=== PATIENT | female | born 1950 | race African-American/Black ===

== ENCOUNTER 2017-04-19 16:24 | Emergency (ER) | payer OTHER ==
[~2017-04-19] VITALS: Ht 160 cm; Wt 66.0 kg
[2017-04-19 16:25] VITALS: BP 157/79; PULSE 118; RESP 14; TEMP 98.3; O2SAT 98
[2017-04-19] MEDS ORDERED: LOSA25TA PO (16:27)
[2017-04-19] MEDS ORDERED: SODIUM CHLOR 0.9% 1000 ML INJ 1,000 ML IV ONE (16:45)
--- NOTE | 2017-04-19 16:52 | PD ---
HPI Chief Complaint: Allergic/Adverse Reaction Time Seen by Provider: 16:31 Travel History International Travel<30 days: No Contact w/Intl Traveler<30days: No Traveled to known affect area: No History of Present Illness HPI The patient is a 67-year-old female who presents to the emergency department from the oncology office after an adverse reaction to chemotherapy. The patient has a history of colon cancer who underwent partial colectomy by the colorectal surgeon, Dr. Alonzo, with primary anastomosis. The patient was receiving her first chemotherapy today, oxaliplatin, when she had an adverse reaction which included blurry vision, thickening of the tongue, tightening of the throat, paresthesias to the left hand and legs, and bilateral leg weakness. The patient did receive Decadron prior to infusion of the chemotherapy agent and afterwards received calcium gluconate and Compazine. The patient was referred to the emergency department for further monitoring and evaluation. The patient states her symptoms have significantly improved, she denies any current headache, chest pain, shortness breath, nausea, vomiting, or abdominal pain. The patient states the paresthesias in the weakness of the extremities has significantly improved. PFSH Past Medical History Hypertension: Yes Tetanus Vaccination: > 5 Years Influenza Vaccination: Yes ?: Not Menopausal: Yes Past Surgical History Abdominal Surgery: Yes (Colon) Section: Yes Social History Alcohol Use: No Tobacco Use: No Substance Use: No Allergies-Medications (Allergen,Severity, Reaction): Coded Allergies: No Known Allergies (Unverified , 04/19/17) Reported Meds & Prescriptions Reported Meds & Active Scripts Active Reported Losartan (Losartan Potassium) 25 Mg Tab 25 Mg PO DAILY Review of Systems Except as stated in HPI: all other systems reviewed are Neg HENT: Positive: Lightheadedness, Other (throat tightening as noted in the history of present illness) Cardiovascular: No: Chest Pain or Discomfort Respiratory: Positive: Shortness of Breath (currently resolved) Gastrointestinal: Positive: Nausea (currently resolved), No: Abdominal Pain Musculoskeletal: Positive: Weakness Neurologic: Positive: Paresthesia, Sensory Disturbance Physical Exam Narrative GENERAL: Awake, alert, nontoxic-appearing 67-year-old female who appears her stated age and is in no acute respiratory distress. SKIN: Focused skin assessment warm/dry. HEAD: Atraumatic. Normocephalic. EYES: Pupils equal and round. No scleral icterus. No injection or drainage. ENT: No nasal bleeding or discharge. Mucous membranes pink and moist. No obvious thickening of the tongue. No angioedema or edema of the lips noted. NECK: Trachea midline. No JVD. CARDIOVASCULAR: Regular, tachycardic with a heart rate of 110. RESPIRATORY: No accessory muscle use. Clear to auscultation. Breath sounds equal bilaterally. GASTROINTESTINAL: Abdomen soft, non-tender, nondistended. No rebound tenderness. MUSCULOSKELETAL: No obvious deformities. No clubbing. No cyanosis. No edema. Strength with flexion of the hips and extension of the knees is 5 out of 5. Plantar flexion and dorsiflexion are 5 out of 5. Positive left radial pulse. No obvious edema of the left forearm or left hand. NEUROLOGICAL: Awake and alert. No obvious cranial nerve deficits. Motor grossly within normal limits. Normal speech. Nonfocal. Oriented 4. Sensation is intact to the hands and lower extremity is bilaterally. PSYCHIATRIC: Appropriate mood and affect; insight and judgment normal. Data Data Last Documented VS Vital Signs Date Time Temp Pulse Resp B/P (MAP) Pulse Ox O2 Delivery O2 Flow Rate FiO2 04/19/17 16:25 98.3 118 14 157/79 (105) 98 Orders Orders Sodium Chlor 0.9% 1000 Ml Inj (Ns 1000 M (04/19/17 16:45) Comprehensive Metabolic Panel (04/19/17 16:42) Potassium Chloride (Kcl) (04/19/17 17:30) Labs Laboratory Tests Test 04/19/17 16:55 Blood Urea Nitrogen 11 MG/DL Creatinine 1.00 MG/DL Random Glucose 168 MG/DL Total Protein 7.7 GM/DL Albumin 4.0 GM/DL Calcium Level 9.9 MG/DL Alkaline Phosphatase 92 U/L Aspartate Amino Transf (AST/SGOT) 14 U/L Alanine Aminotransferase (ALT/SGPT) 30 U/L Total Bilirubin 0.4 MG/DL Sodium Level 137 MEQ/L Potassium Level 2.9 MEQ/L Chloride Level 99 MEQ/L Carbon Dioxide Level 28.4 MEQ/L Anion Gap 10 MEQ/L Estimat Glomerular Filtration Rate 67 ML/MIN [facility] Medical Decision Making Medical Screen Exam Complete: Yes Emergency Medical Condition: Yes Medical Record Reviewed: Yes Interpretation(s) EKG reveals sinus tachycardia with a heart rate of 112. Incomplete right bundle branch block with RSR prime in V1 with QRS of 97 ms. Nonspecific T wave changes. Laboratory Tests Test 04/19/17 16:55 Blood Urea Nitrogen 11 MG/DL Creatinine 1.00 MG/DL Random Glucose 168 MG/DL Total Protein 7.7 GM/DL Albumin 4.0 GM/DL Calcium Level 9.9 MG/DL Alkaline Phosphatase 92 U/L Aspartate Amino Transf (AST/SGOT) 14 U/L Alanine Aminotransferase (ALT/SGPT) 30 U/L Total Bilirubin 0.4 MG/DL Sodium Level 137 MEQ/L Potassium Level 2.9 MEQ/L Chloride Level 99 MEQ/L Carbon Dioxide Level 28.4 MEQ/L Anion Gap 10 MEQ/L Estimat Glomerular Filtration Rate 67 ML/MIN Differential Diagnosis Differential diagnosis includes chemotherapy adverse reaction, angioedema, anaphylaxis, allergic reaction, panic attack, anxiety. Narrative Course Labs are drawn and sent. The patient was administered 1 L of IV fluids. I spoke with the patient's oncologist, Dr. Hernández, who thinks the patient may have had a panic attack with the adverse reaction. The patient's symptoms are improving, and after discussion with oncology, as agreed if the patient's symptoms improved she can be discharged home. The patient was then monitored in the emergency department. The patient's potassium is low at 2.9, therefore, was replaced orally. The patient be discharged home with potassium supplementation for 2 days, is advised to follow-up with her oncologist. Return if symptoms worsen or progress. Diagnosis Primary Impression: Chemotherapy adverse reaction Qualified Codes: T45.1X5A - Adverse effect of antineoplastic and immunosuppressive drugs, initial encounter Additional Impression: Hypokalemia Patient Instructions: General Instructions Additional Instructions: Please provide a patient a copy of her labs at discharge. Potassium supplementation as directed. Follow-up with your oncologist. Return if symptoms worsen or progress. Med/Other Pt SpecificInfo: Prescription(s) given Scripts Potassium Chloride ER (K-Tab) 20 Meq Tab 20 MEQ PO BID for Electrolyte Replacement for 2 Days, #4 TAB 0 Refills Prov: Faisal Xiao MD 04/19/17 Disposition: 01 DISCHARGE HOME Condition: Stable Faisal Xiao MD Apr 19, 2017 16:52
[2017-04-19 17:17] LABS: ALKALINE PHOSPHATASE 92 U/L (45-117); ALT (GPT) 30 U/L (10-53); ANION GAP 10 MEQ/L (5-15); AST (GOT) 14 U/L (15-37); BICARBONATE 28.4 MEQ/L (21.0-32.0); BLOOD UREA NITROGEN 11 MG/DL (7-18); CHLORIDE 99 MEQ/L (98-107); GLOMERULAR FILTRATION RATE 67 ML/MIN (>89); SODIUM (NA) 137 MEQ/L (136-145); TOTAL BILIRUBIN ADULT 0.4 MG/DL (0.2-1.0)
[2017-04-19 17:18] LABS: POTASSIUM 2.9 MEQ/L (3.5-5.1)
[2017-04-19] MEDS ORDERED: POTA1TAB4 PO (17:27)
[2017-04-19] MEDS ORDERED: POTASSIUM CHLORIDE 20 MEQ CONTROLLED RELEASE TAB PO ONE (17:30)
[2017-04-19 17:40] VITALS: BP 152/76; PULSE 105; RESP 16; O2SAT 100
--- NOTE | 2017-04-20 10:28 | EKG ---
Date Performed: 04/19/2017 Time Performed: 16:27:10 PTAGE: 67 years EKG: SINUS TACHYCARDIA NORMAL RHYTHM ECG NO PREVIOUS TRACING DOCTOR: Jignesh Mcdonnell Interpretating Date/Time 04/20/2017 10:27:18
== END 2017-04-19 18:09 | disposition home or self-care (01) ==
LOC: PHED 16:24
DX: T45.1X5A Adverse effect of antineoplastic and immunosuppressive drugs, initial encounter (principal); E87.6 Hypokalemia; I10 Essential (primary) hypertension; Z85.038 Personal history of other malignant neoplasm of large intestine
CPT/HCPCS: 80053; 93005; 96360; 99284; J7030

== ENCOUNTER 2017-05-06 07:01 | Day surgery (SDC) | payer OTHER ==
[~2017-05-06] VITALS: Ht 162.6 cm; Wt 65.9 kg
[~2017-05-06 07:01] MED LIST: LOSA25TA PO
[2017-05-06 07:13] VITALS: BP 174/93; PULSE 98; RESP 20; TEMP 98.6; O2SAT 100
[2017-05-06] MEDS ORDERED: CHLORHEXIDINE GLUCONATE 2 % 1 PACK (2 CLOTHS) TOPICAL SCH (07:45)
[2017-05-06] MEDS ORDERED: VANCOMYCIN 1000 MG/NS 250 ML - implanted port/tunneled catheter IV SCH ×2 (07:45)
[2017-05-06] MEDS ORDERED: POVIDONE IODINE 5% (ANTISEPSIS KIT) 4 APPLICATIONS EACH NARE SCH (07:45)
[2017-05-06] MEDS ORDERED: ceFAZolin 2 GM PREMIX 50 ML - implanted port/tunneled catheter insertion IV SCH (07:45)
[2017-05-06] MEDS ORDERED: SODIUM CHLORIDE 0.9% 1000 ML IV SCH (07:45)
[2017-05-06 08:05] LABS: AUTOMATED NEUTROPHIL # 4.3 TH/MM3 (1.8-7.7); BASOPHIL # 0.1 TH/MM3 (0-0.2); BASOPHIL % 1.1 % (0.0-2.0); EOSINOPHIL # 0.2 TH/MM3 (0-0.4); EOSINOPHIL % 3.2 % (0.0-4.0); HEMATOCRIT 39.4 % (35.0-46.0); HEMO FLAGS DIFF FINAL; LYMPH % 29.9 % (9.0-44.0); LYMPHOCYTE # 2.2 TH/MM3 (1.0-4.8); MEAN CELL VOLUME 88.1 FL (80.0-100.0); MEAN CORPUSCULAR HEMOGLOBIN 30.4 PG (27.0-34.0); MEAN CORPUSCULAR HGB CONC 34.6 % (32.0-36.0); NEUT % 58.8 % (16.0-70.0); PLATELET COUNT 334 TH/MM3 (150-450); RED BLOOD COUNT 4.48 MIL/MM3 (4.00-5.30); RED CELL DISTRIBUTION WIDTH 13.5 % (11.6-17.2); WHITE BLOOD COUNT 7.4 TH/MM3 (4.0-11.0)
[2017-05-06 08:12] LABS: PROTHROMBIN TIME - PATIENT 10.5 SEC (9.8-11.6)
[2017-05-06] MEDS ORDERED: MIDAZOLAM HCL 2 MG/2 ML VIAL ONE (09:19)
[2017-05-06 10:28] VITALS: BP 128/52; PULSE 88; RESP 18; TEMP 97.6; O2SAT 100
[2017-05-06] MEDS ORDERED: SODIUM CHLORIDE 0.9% FLUSH 10 ML FLUSH IVF PRN (10:30)
--- NOTE | 2017-05-06 10:30 | PD.RAD ---
Post Procedure Progress Note Pre Procedure Diagnosis: (1) Colon cancer Post Procedure Diagnosis: (1) Colon cancer Procedure Date: May 06, 2017 Supervising Radiologist: Gilbert Sandoval JR Proceduralist/Assist: Ileana Rivers RT(R), Janel Leal RT(R) Anesthesia: Conscious Sedation Plan of Activity Patient to Unit: ROPU Patient Condition: Good See PACS Report for procedural detail/treatment Central Venous Access Device Procedure 1 Right Internal Jugular Infusaport Placement single lumen Romansh: 8 Findings: Port in good position and functions well. OK to use. Plan F/U with IR in 10-14 days for a site check Jr. Jaime,Gilbert Pro MD May 06, 2017 10:30
[2017-05-06 10:43] VITALS: BP 125/50; PULSE 80; RESP 17; O2SAT 100
--- NOTE | 2017-05-06 10:52 | RADRPT ---
EXAM DATE/TIME: 05/06/2017 09:36 [facility] COMPARISON: No previous studies available for comparison. INDICATIONS : Patient presents with colon cancer in need of port placement. MEDICAL HISTORY : Hyperlipidemia Adenocardinoma of the sigmoid colon SURGICAL HISTORY : Caesarean section Sigmoid colon resection 2016 ENCOUNTER: Initial ACUITY: 3 months PAIN SCORE: 0/10 LOCATION: NA FLUORO TIME: 0.4 minutes IMAGE SERIES: 1 SEDATION TIME: 25 minutes ACCESS: Right internal jugular vein SEDATION: 1.) 3 mg midazolam (Versed) IV 2.) 150 mcg fentanyl (Sublimaze) IV Prophylactic antibiotics were administered with appropriate pre-procedure timing. Vancomycin within 2 hours of procedure, Ancef (or alternative) within 1 hour of procedure. DEVICE: 1. 8 Congolese single lumen [id number] PROCEDURE : 1. Continuous pulse oximetry and EKG monitoring. 2. Intravenous conscious sedation. 3. Ultrasound guidance for venous access. 4. Fluoroscopic guided implantable central venous port placement. The patient was placed supine. The neck was prepped in sterile fashion. Full sterile technique was u sed, including cap, mask, sterile gloves and gown, and a large sterile sheet. Hand hygiene and 2% ch lorhexidine Betadine was utilized per protocol for cutaneous antisepsis with appropriate dry time for site. Sterile gel and sterile probe cover were utilized for ultrasound guidance. The skin and sub cutaneous tissues were infiltrated with local anesthetic solution. Under direct ultrasound guidance, central venous access was accomplished in the targeted vessel. The ultrasound images depicting access guidance were stored and saved to PACS for permanent record. A s ubcutaneous pocket was created using blunt dissection. The port was introduced to the pocket. The c atheter tubing was fed through a subcutaneous tunnel to the venotomy site. The catheter tubing was c ut to a suitable length and then was introduced through a valved Peel-Away sheath and positioned with catheter tubing tip at the cavo-atrial junction level. The pocket incision was closed with subcutic ular Vicryl suture. Steri-Strips were applied. The port was flushed and locked with heparin solutio n per protocol. Sterile dressing was applied to the site. The patient tolerated the procedure well. Conscious sedation was performed with the prescribed dosages and duration as above in the presence of an independent trained radiology nurse to assist in the monitoring of the patient. EKG and oximetry remained stable throughout the procedure. The patient tolerated the procedure well and there were no complications. The patient was sent to post anesthesia recovery in stable condition. CONCLUSION: Uncomplicated ultrasound and fluoroscopic guided implanted central venous port catheter placement as described in detail above. An 8 Congolese Power port was placed. Gilbert Sandoval Jr., MD on May 06, 2017 at 10:50 Board Certified Radiologist. This report was verified electronically.
[2017-05-06 11:13] VITALS: BP 130/74; PULSE 75; RESP 17; O2SAT 100
[2017-05-06 11:43] VITALS: BP 135/78; PULSE 83; RESP 18; O2SAT 100
[2017-05-06 12:43] VITALS: BP 136/74; PULSE 84; RESP 17; O2SAT 100
== END 2017-05-06 12:43 | disposition home or self-care (01) ==
LOC: HROP 07:01 → HRIP 07:02 → HROP 12:43
PROVIDERS: ATTEND Internal Medicine Hematology & Oncology
DX: Z45.2 Encounter for adjustment and management of vascular access device (principal); C18.9 Malignant neoplasm of colon, unspecified; I10 Essential (primary) hypertension; E78.5 Hyperlipidemia, unspecified; Z79.01 Long term (current) use of anticoagulants
CPT/HCPCS: 36561; 76937; 77001; 85025; 85610; 85730; 99152; 99153; C1788; J0690; J1642; J2250; J3010; J3370; J7030; J7050